=== PATIENT | female | born 1980 | race Asian ===

== ENCOUNTER 2018-05-10 15:04 | Outpatient (CLI) | payer OTHER ==
[2018-05-10] MEDS ORDERED: SODIUM BICARBONATE 4.0%, 5ML ONE (17:58)
[2018-05-10] MEDS ORDERED: LIDOCAINE 1%, 20ML ONE (17:58)
[2018-05-10] MEDS ORDERED: LIDOCAINE 1%-EPI 1:100K, 20ML ONE (17:58)
== END 2018-05-22 13:48 | disposition home or self-care (01) ==
LOC: CFH 15:04
PROVIDERS: ATTEND Family Medicine
DX: C50.212 Malignant neoplasm of upper-inner quadrant of left female breast (principal); C77.3 Secondary and unspecified malignant neoplasm of axilla and upper limb lymph nodes
CPT/HCPCS: 19285; 38505; 76942; 88305; J3490

== ENCOUNTER → 2018-05-18 | Outpatient (CLI) | payer OTHER ==
[~2018-05-18] MED LIST: GADOBUTROL 7.5 MMOL/7.5 ML VIAL ONE
== END | disposition home or self-care (01) ==
LOC: CFH 11:16
PROVIDERS: ATTEND Surgery
DX: C77.3 Secondary and unspecified malignant neoplasm of axilla and upper limb lymph nodes (principal); C50.912 Malignant neoplasm of unspecified site of left female breast
CPT/HCPCS: 77065; A9585; C8908

== ENCOUNTER 2018-05-23 12:56 | Day surgery (SDC) | payer OTHER ==
[~2018-05-23] VITALS: Ht 162.6 cm; Wt 48.1 kg
[~2018-05-23 12:56] MED LIST changes: +CEFAZOLIN 1,000 MG ONE; +DEXAMETHASONE 4 MG/ML, 1ML ONE; -GADOBUTROL 7.5 MMOL/7.5 ML VIAL ONE; +ONDANSETRON 2MG/ML, 2ML ONE; +PROPOFOL 10 MG/ML, 20ML ONE; +ROCURONIUM 10 MG/ML,10ML ONE; +SUCCINYLCHOLINE 20 MG/ML, 10ML ONE
[2018-05-23 15:33] VITALS: BP 117/77
[2018-05-23] MEDS ORDERED: LACTATED RINGERS 1,000 ML IV SCH ×2 (15:38→23:30)
[2018-05-23] MEDS ORDERED: ONDANSETRON 2MG/ML, 2ML IVPush ONE (16:00)
[2018-05-23] MEDS ORDERED: ACETAMINOPHEN 500 MG TABLET PO ONE (16:00)
[2018-05-23] MEDS ORDERED: SCOPOLAMINE PATCH, 1.5MG PATCH.TD72 TD ONE (16:00)
[2018-05-23 16:13] LABS: HCG UR SG 1.014 (1.003-1.030)
[2018-05-23] MEDS ORDERED: HEPARIN 1,000 UNITS/ML, 10ML PERMACATH ONE (20:58)
[2018-05-23] MEDS ORDERED: BUPIVACAINE/PF-EPI 0.5% 1:200K INFIL ONE (20:59)
[2018-05-23] MEDS ORDERED: FENTANYL PF 100 MCG/2ML IV PRN (21:30)
[2018-05-23] MEDS ORDERED: LABETALOL 5MG/ML, 20ML IV PRN (21:30)
[2018-05-23] MEDS ORDERED: ONDANSETRON ODT 8 MG PO PRN (21:30)
[2018-05-23] MEDS ORDERED: ONDANSETRON 2MG/ML, 2ML IV PRN (21:30)
[2018-05-23] MEDS ORDERED: OXYcodone 5 MG/5 ML ORAL.SOL UDC PO PRN (21:30)
[2018-05-23] MEDS ORDERED: HYDROmorphone 1 MG/ML, 1ML IV PRN (21:30)
[2018-05-23] MEDS ORDERED: PROMETHAZINE 12.5 MG SUPP PR PRN (21:30)
[2018-05-23] MEDS ORDERED: hydrALAzine 20 MG/ML, 1ML IV PRN (21:30)
[2018-05-23] MEDS ORDERED: OXYcodone 5 MG/5 ML ORAL.SOL UDC ONE (21:54)
[2018-05-23] MEDS ORDERED: MORPHINE SULFATE 4 MG/ML, 1ML IVPush PRN (23:30)
[2018-05-23] MEDS ORDERED: ONDANSETRON 2MG/ML, 2ML IVPush PRN (23:30)
== END 2018-05-23 23:25 | disposition home or self-care (01) ==
LOC: SDC 12:56 → EDSTATUS 18:00 → 4NOR 22:05 → SDC 23:25
PROVIDERS: ATTEND Internal Medicine Hematology & Oncology
DX: C50.812 Malignant neoplasm of overlapping sites of left female breast (principal); Z98.890 Other specified postprocedural states; Z72.89 Other problems related to lifestyle
CPT/HCPCS: 36561; 71045; 77001; 78815; 81025; A9552; C1769; C1788; J0330; J0690; J1100; J1644; J2405; J2704; J7120; 76000; G0378

== ENCOUNTER → 2018-07-19 | Outpatient (CLI) | payer OTHER | END | disposition home or self-care (01) | LOC: CFH 13:36 | PROVIDERS: ATTEND Internal Medicine Hematology & Oncology | DX: Z51.11 Encounter for antineoplastic chemotherapy (principal); C50.412 Malignant neoplasm of upper-outer quadrant of left female breast; D70.1 Agranulocytosis secondary to cancer chemotherapy; Z79.899 Other long term (current) drug therapy | CPT/HCPCS: 76641; 77065; G0279 ==

== ENCOUNTER → 2018-08-29 | Outpatient (CLI) | payer OTHER ==
[~2018-08-29] MED LIST changes: -CEFAZOLIN 1,000 MG ONE; -DEXAMETHASONE 4 MG/ML, 1ML ONE; +GADOBUTROL 7.5 MMOL/7.5 ML VIAL ONE; -ONDANSETRON 2MG/ML, 2ML ONE; -PROPOFOL 10 MG/ML, 20ML ONE; -ROCURONIUM 10 MG/ML,10ML ONE; -SUCCINYLCHOLINE 20 MG/ML, 10ML ONE
== END | disposition home or self-care (01) ==
LOC: CFH 09:42
PROVIDERS: ATTEND Surgery
DX: C50.412 Malignant neoplasm of upper-outer quadrant of left female breast (principal); C79.89 Secondary malignant neoplasm of other specified sites
CPT/HCPCS: 76641; 77049; 77065; A9585; G0279

== ENCOUNTER 2018-09-28 09:07 | Outpatient (CLI) | payer OTHER ==
[2018-09-28] MEDS ORDERED: No meds per pt. (09:53)
== END 2018-09-28 23:59 | disposition home or self-care (01) ==
LOC: STAR 09:07
PROVIDERS: ATTEND Surgery
DX: Z02.9 Encounter for administrative examinations, unspecified (principal)

== ENCOUNTER → 2018-10-04 | Outpatient (CLI) | payer OTHER ==
[~2018-10-04] MED LIST changes: -GADOBUTROL 7.5 MMOL/7.5 ML VIAL ONE; +LIDOCAINE-MPF 1%, 5ML ONE; +No meds per pt.
== END | disposition home or self-care (01) ==
LOC: RAD 14:35
PROVIDERS: ATTEND Surgery
DX: C50.912 Malignant neoplasm of unspecified site of left female breast (principal)
CPT/HCPCS: 38792; A9541

== ENCOUNTER 2018-10-05 07:00 | Day surgery (SDC) | payer OTHER ==
[~2018-10-05] VITALS: Ht 162.6 cm; Wt 49.4 kg
[~2018-10-05 07:00] MED LIST changes: -LIDOCAINE-MPF 1%, 5ML ONE
[2018-10-05] MEDS ORDERED: LACTATED RINGERS 1,000 ML IV SCH (07:10)
[2018-10-05 07:22] VITALS: BP 109/75
[2018-10-05] MEDS ORDERED: ACETAMINOPHEN 500 MG TABLET PO ONE (07:30)
[2018-10-05] MEDS ORDERED: ONDANSETRON ODT 8 MG PO ONE (07:30)
[2018-10-05] MEDS ORDERED: SCOPOLAMINE PATCH, 1.5MG PATCH.TD72 TD ONE (07:30)
[2018-10-05] MEDS ORDERED: GABAPENTIN 300 MG CAPSULE PO ONE (07:30)
[2018-10-05] MEDS ORDERED: FENTANYL PF 250 MCG/5ML ONE (07:38)
[2018-10-05] MEDS ORDERED: MIDAZOLAM 1 MG/ML, 2ML ONE (07:38)
[2018-10-05 07:46] LABS: HCG UR SG 1.015 (1.003-1.030)
[2018-10-05] MEDS ORDERED: BUPIVACAINE/PF 0.5% ONE (07:55)
[2018-10-05] MEDS ORDERED: ISOSULFAN BLUE 10 MG/ML, 5ML IV ONE (07:55)
[2018-10-05] MEDS ORDERED: EPINEPHRINE 1 MG/ML, 1ML ONE (07:55)
[2018-10-05] MEDS ORDERED: SODIUM BICARBONATE 4.0%, 5ML ONE (07:55)
[2018-10-05] MEDS ORDERED: LIDOCAINE 1%, 20ML ONE (07:56)
[2018-10-05] MEDS ORDERED: PROMETHAZINE 25 MG/ML, 1ML IV PRN (09:00)
[2018-10-05] MEDS ORDERED: OXYcodone 5 MG/5 ML ORAL.SOL UDC PO PRN (09:00)
[2018-10-05] MEDS ORDERED: LORazepam 2 MG/ML, 1ML IVPush PRN (09:00)
[2018-10-05] MEDS ORDERED: HYDROmorphone 2 MG/ML, 1ML IVPush PRN (09:00)
[2018-10-05] MEDS ORDERED: FENTANYL PF 100 MCG/2ML IV PRN (09:00)
[2018-10-05] MEDS ORDERED: MEPERIDINE/PF 25MG/0.5ML IVPush PRN (09:00)
[2018-10-05] MEDS ORDERED: SUCCINYLCHOLINE 20 MG/ML, 10ML ONE (09:06)
[2018-10-05] MEDS ORDERED: PROPOFOL 10 MG/ML, 20ML ONE (09:06)
[2018-10-05] MEDS ORDERED: MEPERIDINE/PF 25MG/ML,1ML ONE (11:30)
== END 2018-10-05 12:50 | disposition home or self-care (01) ==
LOC: OUT 07:00
PROVIDERS: ATTEND Surgery
DX: C50.812 Malignant neoplasm of overlapping sites of left female breast (principal); R59.1 Generalized enlarged lymph nodes; Z72.89 Other problems related to lifestyle
CPT/HCPCS: 19125; 36590; 38525; 76098; 81025; 88307; 88329; 88333; 88334; J0171; J0330; J2175; J2250; J2704; J3010; J3490; J7120; Q0162; 88305; 88332

== ENCOUNTER 2018-10-19 07:41 | Outpatient (CLI) | payer OTHER | END 2018-10-19 23:59 | disposition home or self-care (01) | LOC: ROC 07:41 | PROVIDERS: ATTEND Radiology Radiation Oncology | DX: C50.812 Malignant neoplasm of overlapping sites of left female breast (principal) | CPT/HCPCS: 99214; G0463 ==

== ENCOUNTER 2019-01-08 08:18 | Outpatient (CLI) | payer OTHER | END 2019-01-08 23:59 | disposition home or self-care (01) | LOC: ROC 08:18 | PROVIDERS: ATTEND Radiology Radiation Oncology | DX: C50.412 Malignant neoplasm of upper-outer quadrant of left female breast (principal) | CPT/HCPCS: 99212; G0463 ==

== ENCOUNTER → 2019-11-05 | Outpatient (CLI) | payer OTHER | END | disposition home or self-care (01) | LOC: CFH 08:48 | PROVIDERS: ATTEND Internal Medicine Hematology & Oncology | DX: C50.412 Malignant neoplasm of upper-outer quadrant of left female breast (principal); M81.0 Age-related osteoporosis without current pathological fracture | CPT/HCPCS: 77080 ==

== ENCOUNTER → 2020-05-05 | Outpatient (CLI) | payer OTHER | END | disposition home or self-care (01) | LOC: CFH 10:11 | PROVIDERS: ATTEND Surgery | DX: Z12.31 Encounter for screening mammogram for malignant neoplasm of breast (principal); C50.412 Malignant neoplasm of upper-outer quadrant of left female breast | CPT/HCPCS: 76641; 77063; 77067 ==

== ENCOUNTER → 2020-12-19 | Outpatient (CLI) | payer OTHER | END | disposition home or self-care (01) | LOC: CFH 08:24 | PROVIDERS: ATTEND Internal Medicine Hematology & Oncology | DX: C50.412 Malignant neoplasm of upper-outer quadrant of left female breast (principal); M85.89 Other specified disorders of bone density and structure, multiple sites; M81.0 Age-related osteoporosis without current pathological fracture | CPT/HCPCS: 77080 ==